=== PATIENT | female | born 1970 | race Caucasian/White ===

== ENCOUNTER 2018-11-16 11:12 | Emergency (ER) | payer BC ==
[2018-11-16 11:21] VITALS: BP 172/100
[2018-11-16] MEDS ORDERED: LORAZEPAM INJ 2 MG/1 ML VIAL IM ONE (11:42)
--- NOTE | 2018-11-16 11:44 | ER Document Report ---
ED Medical Screen (RME) - General Chief Complaint: Alcohol Withdrawl Stated Complaint: DEPENDENCY Time Seen by Provider: 11/16/18 11:37 Notes: Chief complaint: Alcohol dependence History of complain:( obtained from----patient) 48 years old female for the last 3 years has progressively increasing her intake of alcohol to the point she is taking about 10-12 shots a day now. Yesterday she was so drunk that she fell down. Children came into the scene and impressed upon her to go to detox program therefore present today. Since last afternoon that is yesterday has not had any drink. Feeling nervous and shaky. PHYSICAL EXAMINATION: GENERAL: Well-appearing, well-nourished , in anxious, tremors ,acute distress. HEAD: Atraumatic, normocephalic. EYES: Pupils equal round and reactive to light, extraocular movements intact, conjunctiva are normal. ENT: Nares patent, oropharynx clear without exudates. Moist mucous membranes. NECK: Normal range of motion, supple without lymphadenopathy LUNGS: Breath sounds clear to auscultation bilaterally and equal. No wheezes rales or rhonchi. HEART: Regular rate and rhythm without murmurs ABDOMEN: Soft, nontender, nondistended abdomen. No guarding, no rebound. No masses appreciated. Examination of genitals-deferred Musculoskeletal: Normal range of motion, no pitting or edema. No cyanosis. NEUROLOGICAL: Cranial nerves grossly intact. Normal speech, normal gait. Normal sensory, motor exams PSYCH: Normal mood, normal affect. SKIN: Warm, Dry, normal turgor, no rashes or lesions noted. Dictation was performed using [employer] voice recognition software completed TRAVEL OUTSIDE OF THE [place] IN LAST 30 DAYS: No - Related Data Allergies/Adverse Reactions: No Known Allergies Allergy (Verified 11/16/18 11:36) Physical Exam - Vital signs Vitals: Temp Pulse Resp BP Pulse Ox 98.3 F 115 H 14 172/100 H 97 11/16/18 11:20 11/16/18 11:20 11/16/18 11:20 11/16/18 11:20 11/16/18 11:20 Course - Vital Signs Vital signs: Temp Pulse Resp BP Pulse Ox 98.3 F 115 H 14 172/100 H 97 11/16/18 11:20 11/16/18 11:20 11/16/18 11:20 11/16/18 11:20 11/16/18 11:20
[2018-11-16] MEDS ORDERED: RINGERS SOLUTION,LACTATED 1,000 ML IV ONE (12:14)
[2018-11-16] MEDS ORDERED: DIAZEPAM INJ 10 MG/2 ML DISP.SYRIN IV ONE (12:31)
[2018-11-16 13:00] LABS: ABSOLUTE BASOPHILS # (AUTO) 0.1 10^3/uL (0.0-0.2); ABSOLUTE LYMPHOCYTES (AUTO) 1.2 10^3/uL (0.5-4.7); ABSOLUTE MONOCYTES (AUTO) 0.8 10^3/uL (0.1-1.4); ABSOLUTE NEUT (AUTO) 4.9 10^3/uL (1.7-8.2); BASOPHILS % (AUTO) 0.9 % (0-2); EOSINOPHILS % (AUTO) 0.2 % (0-6); HEMATOCRIT 44.8 % (36.0-47.0); HEMOGLOBIN 15.7 g/dL (12.0-15.5); LYMPHOCYTES % (AUTO) 17.1 % (13-45); MEAN CORPUSCULAR HEMOGLOBIN 37.5 pg (27.0-33.4); MEAN CORPUSCULAR VOLUME 107 fl (80-97); MONOCYTES % (AUTO) 11.2 % (3-13); PLATELET COUNT 198 10^3/uL (150-450); RED BLOOD COUNT 4.19 10^6/uL (3.72-5.28); RED CELL DISTRIBUTION WIDTH 13.2 % (11.5-14.0); SEGMENTED NEUTROPHILS % (AUTO) 70.6 % (42-78); TOTAL CELLS COUNTED % (AUTO) 100 %; WHITE BLOOD COUNT 6.9 10^3/uL (4.0-10.5)
[2018-11-16 13:08] LABS: APPEARANCE,URINE CLOUDY; BILIRUBIN,URINE NEGATIVE (NEGATIVE); COLOR,URINE YELLOW; GLUCOSE, URINE NEGATIVE (NEGATIVE); KETONES,URINE 20 mg/dL (NEGATIVE); LEUKOCYTE ESTERASE,URINE NEGATIVE (NEGATIVE); NITRITE,URINE NEGATIVE (NEGATIVE); PROTEIN,URINE >=500 mg/dL (NEGATIVE); URINE SPECIFIC GRAVITY 1.023; UROBILINOGEN,URINE NEGATIVE mg/dL (<2.0)
[2018-11-16 13:12] LABS: ALANINE AMINOTRANSFERASE 97 U/L (9-52); ALBUMIN 4.8 g/dL (3.5-5.0); ALCOHOL 21 mg/dL (NONE DETECTED); ALKALINE PHOSPHATASE 115 U/L (38-126); ANION GAP 13 (5-19); ASPARTATE AMINO TRANSFERASE 111 U/L (14-36); BILIRUBIN,DIRECT 0.4 mg/dL (0.0-0.4); BILIRUBIN,TOTAL 1.2 mg/dL (0.2-1.3); BLOOD UREA NITROGEN 11 mg/dL (7-20); CALCIUM 9.9 mg/dL (8.4-10.2); CARBON DIOXIDE 25 mmol/L (22-30); CHLORIDE 104 mmol/L (98-107); GLUCOSE 95 mg/dL (75-110); POTASSIUM 4.2 mmol/L (3.6-5.0); SODIUM 142.1 mmol/L (137-145); TOTAL PROTEIN 7.7 g/dL (6.3-8.2)
[2018-11-16 13:17] LABS: ACETAMINOPHEN < 10 ug/mL (10-30); SALICYLATE < 1.0 mg/dL (2.0-20.0)
[2018-11-16 13:21] LABS: URINE AMPHETAMINES SCREEN NEGATIVE; URINE BARBITURATES SCREEN NEGATIVE; URINE BENZODIAZEPINES SCREEN UNCONFIRMED POSITIVE; URINE COCAINE SCREEN NEGATIVE; URINE MARIJUANA (THC) SCREEN NEGATIVE; URINE METHADONE SCREEN NEGATIVE; URINE PHENCYCLIDINE SCREEN NEGATIVE
--- NOTE | 2018-11-16 13:35 | PSYCHOLOGICAL NOTE ---
Psych Note - Psych Note Date seen by psych provider: 11/16/18 Time seen by psych provider: 11:55 - Chart review at 1155. Interaction with patient 1210 Psych Note: Reason for Consult: Alcohol detox/withdrawal Contact Permissions: Daughter likely. Patient is a 48 year old female who presented to the ED today via walk in for alcohol withdrawal and wanting detox. She informed medical staff over the past 3 years she has progressively increased her intake of alcohol and currently takes 10-12 shots per day. She fell down yesterday from intoxication and her children got involved, had discussion with her about detox and so she presented to the ED today for help. She reported no alcohol since yesterday (11/15/18) afternoon. Serum Alcohol Level was 21 at 1237. She noted feeling anxious and triage as well as this clinician observed shaky/tremulous hands. She was administered Ativan 2MG IM at 1202. UDS was positive for benzodiazepines at 1237 which was after Ativan administration. She was also administered Valium 10MG IM at 1245. She was also administered a Lactated Ringer. She denied any other drug use. She noted her daughter was looking at a 21 day detox/program in [place]. She identified she has insurance (important in terms of where she can go for treatment) and provided a BCBS card. She was made aware of [facility] (no facilities in [place]), [facility] ([place]) and [facility] ([place]). She was interested in the closer of the options but also asked "is it a good facility." Contacted Navdeep Goodrich ([phone]), mobile admissions for [facility] to make referral. Provided basic demographic information (obtained directly from patient), need for alcohol detox and insurance information. Yann with onsite Admissions at [facility] called back inquiring about patient care at this time and needing to do an over the phone screening with patient which consists of 6 questions. He asked that a referral be faxed so they can have documentation of treatment done at [facility]. Diagnosis: 303.90 (F10.20) Alcohol Use Disorder, Severe, Dependence Impression/Plan: Patient is cleared from acute psychiatric services. Alcohol/Substance abuse treatment is voluntary. Patient stated she does want to go to detox/treatment. She identified her daughter can provide transportation. She denied SI/HI and no observed psychosis (these were never presenting concerns). Coordinated care with [facility] for voluntary inpatient alcohol detox/treatment. Faxed referral packet (patient gave verbal consent to do so) and they called to conduct over the phone screening with patient. [facility] accepting patient for immediate placement. Daughter to provider transportation from ED to treatment facility. Provided patient and daughter with [facility] pamphlet which gave information about the facility and treatment as well as address and admission's number. Consulted with Dr. Ann regarding the management and care of patient. ED Physician in agreement with recommendations.
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
--- NOTE | 2018-11-17 10:11 | EKG REPORT ---
SEVERITY:- OTHERWISE NORMAL ECG - SINUS ARRHYTHMIA, RATE 57-90 : Confirmed by: Hanna Foss 17-Nov-2018 10:10:46
== END 2018-11-16 16:41 | disposition home or self-care (01) ==
LOC: ER 11:12
DX: F10.230 Alcohol dependence with withdrawal, uncomplicated (principal); F32.9 Major depressive disorder, single episode, unspecified; R00.2 Palpitations; R25.1 Tremor, unspecified; R11.0 Nausea; F17.210 Nicotine dependence, cigarettes, uncomplicated
CPT/HCPCS: 93005; 99406; 99285; 96372; 96361; 96374; 36415; 80307 ×4; 85025; 80053; 81001; 93010; J3360; J2060; J7120